=== PATIENT | female | born 1985 | race African-American/Black ===

== ENCOUNTER 2020-02-21 01:05 | Inpatient (IN) | payer OTHER ==
[2020-02-21 02:06] VITALS: BMI 24.9
[2020-02-21] MEDS ORDERED: ACETAMINOPHEN 1000 MG/100 ML VIAL (NON FORMULARY) IVPB ONE (02:33)
[2020-02-21] MEDS ORDERED: FAMOTIDINE 20 MG/50 ML IVPB 50 ML IVPB ONE (02:33)
[2020-02-21] MEDS ORDERED: ONDANSETRON 4 MG/2 ML VIAL IVPB ONE (02:33)
[2020-02-21] MEDS ORDERED: morphine CARPU-JECT 4 MG/1 ML DISP.SYRIN IVPUSH ONE (02:46)
[2020-02-21] MEDS ORDERED: morphine SULFATE 4 MG/ML VIAL ONE (02:48)
[2020-02-21] MEDS ORDERED: FAMOTIDINE 20 MG/50 ML IVPB 20 MG/50 ML MG IVPB ONE ×2 (02:49→03:39)
[2020-02-21 03:41] LABS: HEMATOCRIT 42.1 % (32.4-45.2); HEMOGLOBIN 14.2 GM/dL (10.7-15.3); MCHC 33.8 g/dl (32.0-36.0); MEAN CELL VOLUME 82.8 fl (80-96); MEAN PLT VOLUME 9.4 fl (7.5-11.1); PLATELET COUNT 323 K/MM3 (134-434); RBC 5.08 M/mm3 (3.60-5.2); RDW 13.9 % (11.6-15.6); WHITE BLOOD COUNT 9.4 K/mm3 (4.0-10.0)
[2020-02-21 04:04] LABS: CHLORIDE 94 mmol/L (98-107); POTASSIUM 3.4 mmol/L (3.5-5.1); SODIUM 133 mmol/L (136-145)
[2020-02-21 04:06] LABS: ALBUMIN 3.9 g/dl (3.4-5.0); CALCIUM 9.4 mg/dL (8.5-10.1)
[2020-02-21 04:07] LABS: ANION GAP 12 MMOL/L (8-16); BLOOD UREA NITROGEN 8.7 mg/dL (7-18); CO2 27 mmol/L (21-32); GLUCOSE,RANDOM 125 mg/dL (74-106); LIPASE 656 U/L (73-393)
[2020-02-21 04:10] LABS: SGOT/AST 23 U/L (15-37); SGPT/ALT 22 U/L (13-61)
[2020-02-21 04:11] LABS: BILIRUBIN,TOTAL 0.9 mg/dL (0.2-1); TOT PROT 8.5 g/dl (6.4-8.2)
[2020-02-21 04:13] LABS: ALK PHOS 127 U/L (45-117)
[2020-02-21 04:19] LABS: CREATININE 0.7 mg/dL (0.55-1.3)
[2020-02-21] MEDS ORDERED: HYDROmorphone HCL CARPU-JECT 2 MG/1 ML DISP.SYRIN IVPB ONE (05:47)
[2020-02-21] MEDS ORDERED: METOCLOPRAMIDE HCL INJECTION 10 MG/2 ML VIAL IVPB ONE (05:47)
[2020-02-21] MEDS ORDERED: HYDROmorphone HCl 2 MG/ML VIAL ONE (05:50)
[2020-02-21] MEDS ORDERED: METOCLOPRAMIDE HCL INJECTION 10 MG/2 ML VIAL ONE (05:51)
[2020-02-21] MEDS ORDERED: LACTATED RINGERS SOLUTION 1,000 ML IV SCH ×2 (07:45→07:46)
[2020-02-21] MEDS ORDERED: ACETAMINOPHEN INJECTION 100 ML IVPB ONE (08:40)
[2020-02-21] MEDS: ACETAMINOPHEN 1000 MG/100 ML VIAL (NON FORMULARY) IVPB PRN ×2 (08:47→18:34)
[2020-02-21 09:53] LABS: URINE APPEARANCE CLEAR; URINE BILIRUBIN NEGATIVE (NEGATIVE); URINE COLOR YELLOW; URINE GLUCOSE (UA) NEGATIVE (NEGATIVE); URINE KETONE TRACE (NEGATIVE)
[2020-02-21 09:54] LABS: EPI CELLS 39.8 /uL (0-25.1); HYALINE CASTS 0.38 /uL (0-3.1); URINE LEUK ESTERASE NEGATIVE (NEGATIVE); URINE NITRITE NEGATIVE (NEGATIVE); URINE PROTEIN NEGATIVE (NEGATIVE); URINE RBC 4.2 /uL (0-23.9); URINE UROBILINOGEN 0.2 mg/dL (0.2-1.0); URINE WBC 27.1 /uL (0-25.8)
[2020-02-21 09:55] LABS: URINE BACTERIA 1180.6 /uL (0-1359)
[2020-02-21] MEDS: ENOXAPARIN NA (PORCINE) 40 MG/0.4 ML DISP.SYRIN SQ SCH (11:05)
[2020-02-21] MEDS ORDERED: DOCUSATE SODIUM 100 MG CAPSULE (FP) PO PRN (11:25)
[2020-02-21] MEDS ORDERED: HYDROmorphone HCl 2 MG/ML VIAL IVPB PRN (11:25)
[2020-02-21] MEDS ORDERED: METOCLOPRAMIDE HCL INJECTION 10 MG/2 ML VIAL IVPUSH PRN (11:26)
[2020-02-21 11:44] LABS: BASO % 0.5 % (0-2.0); EOS % 0.2 % (0-4.5); HEMATOCRIT 38.3 % (32.4-45.2); HEMOGLOBIN 12.7 GM/dL (10.7-15.3); MCH 27.4 pg (25.7-33.7); MCHC 33.3 g/dl (32.0-36.0); MEAN CELL VOLUME 82.5 fl (80-96); MEAN PLT VOLUME 8.8 fl (7.5-11.1); MONO % 7.2 % (3.8-10.2); NEUT % 55.1 % (42.8-82.8); PLATELET COUNT 261 K/MM3 (134-434); RBC 4.64 M/mm3 (3.60-5.2); RDW 13.9 % (11.6-15.6); WHITE BLOOD COUNT 7.1 K/mm3 (4.0-10.0)
[2020-02-21 12:05] LABS: POTASSIUM 3.4 mmol/L (3.5-5.1)
[2020-02-21 12:07] LABS: CALCIUM 8.9 mg/dL (8.5-10.1)
[2020-02-21 12:08] LABS: BLOOD UREA NITROGEN 6.1 mg/dL (7-18); MAGNESIUM 2.1 mg/dL (1.8-2.4)
[2020-02-21] MEDS: HYDROmorphone HCl 2 MG/ML VIAL IVPB PRN ×2 (12:08→22:51)
[2020-02-21 12:10] LABS: PHOSPHOROUS 2.3 mg/dL (2.5-4.9)
[2020-02-21 12:11] LABS: CREATININE 0.7 mg/dL (0.55-1.3)
[2020-02-21] MEDS: KCL 10 MEQ IVPB 10 MEQ/100 ML INFUS.BAG IVPB SCH ×3 (13:45→15:42)
[2020-02-21] MEDS: LACTATED RINGERS SOLUTION 1,000 ML IV SCH (15:51)
[2020-02-22] MEDS ORDERED: MELATONIN 5 MG TABLETS PO ONE ×2 (00:12→22:58)
[2020-02-22] MEDS: LACTATED RINGERS SOLUTION 1,000 ML IV SCH ×3 (03:08→18:01)
[2020-02-22] MEDS: ACETAMINOPHEN 1000 MG/100 ML VIAL (NON FORMULARY) IVPB PRN ×2 (03:10→23:44)
[2020-02-22] MEDS: HYDROmorphone HCl 2 MG/ML VIAL IVPB PRN ×2 (08:24→17:58)
[2020-02-22 08:37] LABS: BASO % 0.2 % (0-2.0); EOS % 0.8 % (0-4.5); HEMOGLOBIN 11.6 GM/dL (10.7-15.3); LYMPH % 39.7 % (8-40); MCH 27.3 pg (25.7-33.7); MCHC 33.1 g/dl (32.0-36.0); MEAN CELL VOLUME 82.4 fl (80-96); MEAN PLT VOLUME 9.2 fl (7.5-11.1); MONO % 6.7 % (3.8-10.2); NEUT % 52.6 % (42.8-82.8); PLATELET COUNT 209 K/MM3 (134-434); RBC 4.25 M/mm3 (3.60-5.2); WHITE BLOOD COUNT 5.1 K/mm3 (4.0-10.0)
[2020-02-22 09:07] LABS: POTASSIUM 3.4 mmol/L (3.5-5.1)
[2020-02-22 09:10] LABS: ALBUMIN 2.8 g/dl (3.4-5.0); BLOOD UREA NITROGEN 3.6 mg/dL (7-18); CALCIUM 8.9 mg/dL (8.5-10.1); MAGNESIUM 1.9 mg/dL (1.8-2.4)
[2020-02-22 09:13] LABS: CREATININE 0.5 mg/dL (0.55-1.3)
[2020-02-22 09:14] LABS: PHOSPHOROUS 2.9 mg/dL (2.5-4.9)
[2020-02-22 09:15] LABS: BILIRUBIN,TOTAL 0.6 mg/dL (0.2-1); TOT PROT 6.5 g/dl (6.4-8.2)
[2020-02-22] MEDS: ONDANSETRON 4 MG/2 ML VIAL IVPUSH PRN ×2 (09:50→17:58)
[2020-02-22] MEDS: ENOXAPARIN NA (PORCINE) 40 MG/0.4 ML DISP.SYRIN SQ SCH (09:51)
[2020-02-22] MEDS ORDERED: LORazepam 2 MG/ML SDV VIAL IVPUSH ONE (10:05)
[2020-02-22] MEDS ORDERED: LORazepam 2 MG/ML SDV VIAL IVPUSH PRN (12:41)
[2020-02-22] MEDS: FAMOTIDINE 20 MG/50 ML IVPB 20 MG/50 ML MG IVPB SCH (22:12)
[2020-02-23] MEDS: LACTATED RINGERS SOLUTION 1,000 ML IV SCH ×4 (00:50→17:32)
[2020-02-23] MEDS: ENOXAPARIN NA (PORCINE) 40 MG/0.4 ML DISP.SYRIN SQ SCH (09:47)
[2020-02-23] MEDS: FAMOTIDINE 20 MG/50 ML IVPB 20 MG/50 ML MG IVPB SCH ×2 (09:47→21:20)
[2020-02-23 10:32] LABS: BASO % 0.3 % (0-2.0); EOS % 0.9 % (0-4.5); HEMATOCRIT 36.5 % (32.4-45.2); HEMOGLOBIN 12.2 GM/dL (10.7-15.3); LYMPH % 33.2 % (8-40); MCH 27.8 pg (25.7-33.7); MCHC 33.3 g/dl (32.0-36.0); MEAN CELL VOLUME 83.3 fl (80-96); MEAN PLT VOLUME 9.4 fl (7.5-11.1); MONO % 5.2 % (3.8-10.2); NEUT % 60.4 % (42.8-82.8); PLATELET COUNT 201 K/MM3 (134-434); RBC 4.38 M/mm3 (3.60-5.2); RDW 13.5 % (11.6-15.6); WHITE BLOOD COUNT 5.7 K/mm3 (4.0-10.0)
[2020-02-23 11:31] LABS: POTASSIUM 3.4 mmol/L (3.5-5.1)
[2020-02-23 11:38] LABS: CALCIUM 8.8 mg/dL (8.5-10.1)
[2020-02-23 11:39] LABS: ALBUMIN 3.2 g/dl (3.4-5.0); BLOOD UREA NITROGEN 4.4 mg/dL (7-18); MAGNESIUM 1.4 mg/dL (1.8-2.4)
[2020-02-23] MEDS ORDERED: MAGNESIUM SULF 50% (8.12 MEQ/2 ML-1 GM VIAL) IVPB ONE (11:40)
[2020-02-23 11:42] LABS: CREATININE 0.5 mg/dL (0.55-1.3)
[2020-02-23 11:43] LABS: TOT PROT 6.8 g/dl (6.4-8.2)
[2020-02-23] MEDS ORDERED: MAGNESIUM SULFATE IN WATER 2 GM/50 ML IVPB IVPB ONE (11:45)
[2020-02-23 11:48] LABS: BILIRUBIN,TOTAL 0.6 mg/dL (0.2-1)
[2020-02-23] MEDS: ACETAMINOPHEN 1000 MG/100 ML VIAL (NON FORMULARY) IVPB PRN (21:20)
[2020-02-23] MEDS ORDERED: MELATONIN 5 MG TABLETS PO ONE (21:41)
[2020-02-23] MEDS: SIMETHICONE 80 MG TAB.CHEW (FP) PO PRN (21:48)
[2020-02-24] MEDS: ACETAMINOPHEN 1000 MG/100 ML VIAL (NON FORMULARY) IVPB PRN (05:47)
[2020-02-24] MEDS: SIMETHICONE 80 MG TAB.CHEW (FP) PO PRN (05:47)
[2020-02-24] MEDS: FAMOTIDINE 20 MG/50 ML IVPB 20 MG/50 ML MG IVPB SCH (09:48)
[2020-02-24 10:49] LABS: BASO % 0.4 % (0-2.0); EOS % 2.4 % (0-4.5); HEMATOCRIT 39.6 % (32.4-45.2); HEMOGLOBIN 13.4 GM/dL (10.7-15.3); LYMPH % 37.9 % (8-40); MCH 27.7 pg (25.7-33.7); MCHC 33.7 g/dl (32.0-36.0); MEAN CELL VOLUME 82.3 fl (80-96); MEAN PLT VOLUME 8.7 fl (7.5-11.1); MONO % 6.6 % (3.8-10.2); NEUT % 52.7 % (42.8-82.8); PLATELET COUNT 222 K/MM3 (134-434); RBC 4.81 M/mm3 (3.60-5.2); RDW 14.1 % (11.6-15.6); WHITE BLOOD COUNT 5.6 K/mm3 (4.0-10.0)
[2020-02-24 11:06] LABS: POTASSIUM 3.4 mmol/L (3.5-5.1)
[2020-02-24 11:08] LABS: CALCIUM 9.2 mg/dL (8.5-10.1)
[2020-02-24 11:09] LABS: ALBUMIN 3.5 g/dl (3.4-5.0); BLOOD UREA NITROGEN 4.8 mg/dL (7-18)
[2020-02-24 11:12] LABS: CREATININE 0.7 mg/dL (0.55-1.3)
[2020-02-24 11:13] LABS: BILIRUBIN,TOTAL 0.5 mg/dL (0.2-1); TOT PROT 7.9 g/dl (6.4-8.2)
[2020-02-24] MEDS ORDERED: POTASSIUM CHLORIDE TABS 20 MEQ TABLET.ER (FP) PO ONE (12:53)
[2020-02-24 14:09] VITALS: BP 134/82; PULSE 89; TEMP 98.2
== END 2020-02-24 17:09 | disposition home or self-care (01) | DRG 439 ==
LOC: JER 01:05 → JERBED 06:04 → J6WEST-2 09:52 → J7W 02-22 17:41
PROVIDERS: ATTEND Nurse Practitioner Family
DX: K85.90 Acute pancreatitis without necrosis or infection, unspecified (principal); E87.1 Hypo-osmolality and hyponatremia; E87.6 Hypokalemia; R11.2 Nausea with vomiting, unspecified; G43.909 Migraine, unspecified, not intractable, without status migrainosus; K64.4 Residual hemorrhoidal skin tags; F12.90 Cannabis use, unspecified, uncomplicated; Z72.89 Other problems related to lifestyle
CPT/HCPCS: 36415; 74177-TC; 74181-TC; 76705-TC; 80048; 80053; 80061; 81003; 83690; 83721; 83735; 84100; 84443; 84484; 84703; 85025; 85027; 93005; 93010; 99285-25; C9803; J0131; Q9967; U0003

== ENCOUNTER 2020-07-02 15:30 | Inpatient (IN) | payer OTHER ==
[2020-07-02 15:37] VITALS: BP 160/95; PULSE 82; TEMP 98.1; BMI 30.7
[2020-07-02] MEDS ORDERED: LACTATED RINGERS SOLUTION 1000 ML INFUS.BAG IV ONE (17:17)
[2020-07-02 17:23] LABS: BASO % 0.6 % (0-2.0); EOS % 0.3 % (0-4.5); HEMATOCRIT 44.1 % (32.4-45.2); HEMOGLOBIN 14.4 GM/dL (10.7-15.3); LYMPH % 32.9 % (8-40); MCH 25.8 pg (25.7-33.7); MCHC 32.7 g/dl (32.0-36.0); MEAN CELL VOLUME 78.7 fl (80-96); MEAN PLT VOLUME 8.9 fl (7.5-11.1); MONO % 7.6 % (3.8-10.2); NEUT % 58.6 % (42.8-82.8); PLATELET COUNT 230 K/MM3 (134-434); RDW 15.3 % (11.6-15.6); WHITE BLOOD COUNT 6.5 K/mm3 (4.0-10.0)
[2020-07-02] MEDS ORDERED: chlordiazePOXIDE HCL 25 MG CAPSULE PO ONE (17:37)
[2020-07-02] MEDS ORDERED: chlordiazePOXIDE HCL 25 MG CAPSULE ONE (17:40)
[2020-07-02 17:45] LABS: CHLORIDE 96 mmol/L (98-107); SODIUM 132 mmol/L (136-145)
[2020-07-02 17:50] LABS: ALBUMIN 4.4 g/dl (3.4-5.0); ANION GAP 10 MMOL/L (8-16); BLOOD UREA NITROGEN 20.5 mg/dL (7-18); CALCIUM 9.6 mg/dL (8.5-10.1); CO2 26 mmol/L (21-32); GLUCOSE,RANDOM 90 mg/dL (74-106); LIPASE 91 U/L (73-393); MAGNESIUM 2.4 mg/dL (1.8-2.4)
[2020-07-02 17:54] LABS: BILIRUBIN,TOTAL 0.7 mg/dL (0.2-1); CREATININE 0.9 mg/dL (0.55-1.3); SGOT/AST 106 U/L (15-37); SGPT/ALT 76 U/L (13-61); TOT PROT 9.4 g/dl (6.4-8.2)
[2020-07-02 17:57] LABS: ALK PHOS 170 U/L (45-117)
[2020-07-02] MEDS ORDERED: IBUPROFEN 600 MG TABLET (FP) PO ONE ×2 (18:35→18:36)
== END 2020-07-02 21:56 | disposition left against medical advice (07) | DRG 894 ==
LOC: JER 15:30 → JERBED 19:43
PROVIDERS: ADMIT Internal Medicine; ATTEND Internal Medicine
DX: F10.230 Alcohol dependence with withdrawal, uncomplicated (principal); E87.1 Hypo-osmolality and hyponatremia; F41.9 Anxiety disorder, unspecified; R07.89 Other chest pain; F41.0 Panic disorder [episodic paroxysmal anxiety]; E66.9 Obesity, unspecified; Z68.30 Body mass index [BMI] 30.0-30.9, adult; Z72.0 Tobacco use
CPT/HCPCS: 36415; 71045-TC-FY; 80053; 82550; 82553; 83690; 83735; 84484; 84702; 85025; 93005; 93010; 99285-25; C9803; U0003